=== PATIENT | male | born 1960 | race Caucasian/White ===

== ENCOUNTER 2020-02-25 10:26 | Outpatient (CLI) | payer SELFPAY | END 2020-02-25 23:59 | disposition home or self-care (01) | LOC: MRI 10:26 | PROVIDERS: ATTEND Internal Medicine | DX: M47.817 Spondylosis without myelopathy or radiculopathy, lumbosacral region (principal); M48.07 Spinal stenosis, lumbosacral region; M51.25 Other intervertebral disc displacement, thoracolumbar region; M25.78 Osteophyte, vertebrae | CPT/HCPCS: 72148-TC ==